=== PATIENT | female | born 1950 ===

== ENCOUNTER 2018-06-22 11:47 | Outpatient (CLI) | payer MEDICARE, MEDICAID | END 2018-06-22 11:48 | disposition home or self-care (01) | LOC: C.MAMMO 11:47 | DX: Z12.31 Encounter for screening mammogram for malignant neoplasm of breast (principal) ==

== ENCOUNTER 2018-07-20 15:24 | Outpatient (CLI) | payer MEDICARE, MEDICAID | END 2018-07-20 15:25 | disposition home or self-care (01) | LOC: C.RADIC 15:24 | DX: R05 Cough (principal) ==